=== PATIENT | female | born 1970 | race Caucasian/White ===

== ENCOUNTER 2024-07-13 10:59 | Emergency (ER) | payer OTHER, MEDICAID ==
[~2024-07-13] VITALS: Ht 160 cm; Wt 61.0 kg
[2024-07-13 11:34] VITALS: O2SAT 98
[2024-07-13] MEDS ORDERED: NAPR-1176 MT (15:03)
[2024-07-13] MEDS ORDERED: LIDO700A15 TP (15:03)
[2024-07-13] MEDS: KETOROLAC 15MG/ML VIAL IM ONE (16:03)
[2024-07-13] MEDS: METOCLOPRAMIDE HCL 10MG TABLET PO ONE (16:03)
[2024-07-13] MEDS: LIDOCAINE 5% PATCH TOP SCH (16:04)
[2024-07-13 16:13] VITALS: BP 132/83; PULSE 83; RESP 18; TEMP 37.05852; O2SAT 99
== END 2024-07-13 16:14 | disposition home or self-care (01) ==
LOC: ER 10:59
DX: M54.2 Cervicalgia (principal); R51.9 Headache, unspecified; Z79.1 Long term (current) use of non-steroidal anti-inflammatories (NSAID); Z98.890 Other specified postprocedural states
CPT/HCPCS: 99285; 70450; 72125; 96372; J8597; J1885